=== PATIENT | male | born 1960 | race Caucasian/White ===

== ENCOUNTER → 2016-08-25 | Outpatient (CLI) | payer BC ==
[~2016-08-25] MED LIST: AMLO5TAB2 PO; HUMALOG SQ; LEVEMIR SQ; VITA250T5 PO
[2016-08-25 12:09] LABS: AUTOMATED NEUTROPHIL # 3.8 TH/MM3 (1.8-7.7); BASOPHIL % 0.5 % (0.0-2.0); EOSINOPHIL # 0.1 TH/MM3 (0-0.4); EOSINOPHIL % 1.6 % (0.0-4.0); HEMATOCRIT 45.7 % (39.0-51.0); HEMO FLAGS DIFF FINAL; LYMPH % 38.9 % (9.0-44.0); LYMPHOCYTE # 2.9 TH/MM3 (1.0-4.8); MONO % 7.2 % (0.0-8.0); NEUT % 51.8 % (16.0-70.0); PLATELET COUNT 240 TH/MM3 (150-450); RED BLOOD COUNT 5.19 MIL/MM3 (4.50-5.90); RED CELL DISTRIBUTION WIDTH 11.8 % (11.6-17.2); WHITE BLOOD COUNT 7.4 TH/MM3 (4.0-11.0)
--- NOTE | 2016-08-26 21:51 | EKG ---
Date Performed: 08/25/2016 Time Performed: 12:12:24 PTAGE: 55 years EKG: Sinus rhythm rSr'(V1) - probable normal variant Inferior T wave changes are nonspecific Since previous tracing, n o significant change noted Borderline ECG PREVIOUS TRACING : 10/11/1998 08.55 DOCTOR: Rachid Rodrigues Interpretating Date/Time 08/26/2016 21:49:44
== END ==
LOC: PHPRE 11:38
PROVIDERS: ATTEND Ophthalmology
DX: Z01.810 Encounter for preprocedural cardiovascular examination (principal); Z01.812 Encounter for preprocedural laboratory examination; R94.31 Abnormal electrocardiogram [ECG] [EKG]
CPT/HCPCS: 36415; 85025; 93005

== ENCOUNTER → 2016-09-01 | Day surgery (SDC) | payer BC ==
--- NOTE | 2016-08-26 11:13 | MH ---
cc: KARIN ZALDIVAR DATE OF ADMISSION 09/01/2016 ADMISSION DIAGNOSIS Cataract left eye. HISTORY OF PRESENT ILLNESS This 55-year-old white male is coming through [facility] for the purpose of a lens extraction of the left eye with intraocular lens implant under local anesthesia. He has noticed decreasing visual acuity interfering with his daily activities and elected to have the above procedure. His best corrected visual acuity is 20/30 in the right eye and 20/200 in the left eye. PAST MEDICAL HISTORY The patient has a history of: 1. Diabetes for 15 years 2. Hypertension PAST SURGICAL HISTORY 1. Bilateral arthroscopic knee surgery 2. He has had a focal laser treatment and brock-retinal photocoagulation in both eyes for diabetic retinopathy. 3. He also has had Avastin injections in both eyes. MEDICATIONS Daily medications include: 1. Humalog 2. Levemir 3. Amlodipine 4. B12 p.r.n. 5. Aleve p.r.n. ALLERGIES no known allergies. SOCIAL HISTORY He does not smoke or drink. FAMILY HISTORY Noncontributory, although his mother has had a history of Lasix surgery. REVIEW OF SYSTEMS HEAD: Patient has severe headaches which she feels may be from medications from blood pressure. Denies any dizziness or recent head injury. EARS: Patient denies hearing loss, ear pain, discharge or ringing in the ears. NOSE: Patient denies nasal discharge, obstruction or frequent colds. MOUTH AND THROAT: Patient denies soreness of the mouth or tongue, bleeding gums, trouble swallowing, changes in voice or sore throat. NECK: Patient denies neck pain or swelling, limitation of neck movement or neck injury. CARDIOPULMONARY SYSTEM: Patient denies shortness of breath, orthopnea, chronic cough, sputum production, hemoptysis, chest pain, wheezing, palpitations or light-headedness. GI SYSTEM: Patient denies poor appetite, nausea, vomiting, abdominal pain, ulcers, hemorrhoids or change in bowel habits. SYSTEM: The patient denies urinary frequency, dysuria, change in urine color. NERVOUS SYSTEM: Patient denies convulsions, vertigo, stroke, numbness or weakness. PHYSICAL EXAMINATION Blood pressure is 132/88, pulse 72, respirations 20. HEAD: Normocephalic, atraumatic. NOSE: Without rhinorrhea. THROAT: Clear. NECK: Supple. CHEST: Clear. HEART: Regular rhythm. ABDOMEN: Without tenderness. EXTREMITIES: Without edema. NEUROLOGIC: Within normal limits. PSYCH: Mental status within normal limits. EYE EXAMINATION The patient's best corrected visual acuity is 20/30 in the right eye and 20/200 in the left eye. Visual todd are full to confrontation testing. Extraocular muscle exam reveals full versions with orthophoria at distance and near. HEAD, EYES, EARS, NOSE, AND THROAT: Pupils are 3.5 mm equal, round, and reactive to light without afferent defect. The anterior segment exam reveals early cortical cataract change and minimal nuclear sclerotic cataract change in both eyes with a dense posterior subcapsular cataract in the left eye. Intraocular pressure is 22 in the right eye and 23 in the left eye by applanation tonometry. Dilated fundus exam revealed sharp disk with cup-to-disk ratio 0.5 in the right eye and 0.35 in the left. There are macular hemorrhages in the right macula and the left macula is clear. A Brock-retinal photocoagulation is present bilaterally. IMPRESSION 1. Cataract left eye much greater than right. 2. Proliferative diabetic retinopathy status post brock-retinal photocoagulation in both eyes. PLAN The plan is lens extraction of the left eye with intraocular lens implant under local anesthesia through [facility]. The patient has been cleared medically. He has been counseled as to the risks, benefits and alternatives and elected to proceed. I feel that cataract surgery will improve the quality of life and activities of daily living in this patient. MD STONE Ayala/ELAINE /10:52 AM /11:01 AM
[~2016-09-01] VITALS: Ht 175.3 cm; Wt 88.6 kg
[~2016-09-01] MED LIST changes: +ACETYLCHOLINE CHL OPHT SOLN 1:100 2 ML VIAL ONE; +CYCLOPENTOLATE HCL 1% OPHT SOLN 2 ML BTL ONE; +DICLOFENAC SOD 0.1% OPHT SOLN 2.5 ML BTL ONE; +EPINEPHrine HCL (1:1000) 1 MG/ML VIAL ONE; +GATIFLOXACIN 0.5% OPHT SOLN 2.5 ML BTL ONE; +HYALURONIDASE/LIDOCAINE/BUPIVACAINE 4.5 ML SYR ONE; +HYALURONIDASE/LIDOCAINE/BUPIVACAINE 6 ML SYR ONE; +ONDANSETRON HCL 4 MG/2 ML VIAL IV PUSH ONE; +PHENYLEPHRINE HCL 2.5% OPTH SOLN 2 ML BTL ONE; +PILOCARPINE HCL 2% OPHT SOLN 15 ML BTL ONE; +PROPARACAINE HCL 0.5% OPHT SOLN 15 ML BTL ONE; +PROPOFOL 200 MG/20 ML AMP ONE; +SODIUM CHLORID 0.9% 500 ML INJ 500 ML ONE; +TOBRAMYCIN/DEXAMETHASONE OPTH OINT 3.5 GM TUBE ONE; +TROPICAMIDE 1% OPHT SOLN 15 ML BTL ONE; +VISCOAT OPHT IRRIG SOLN 0.75 ML SYRINGE LEFT EYE ONE
[2016-09-01 08:05] VITALS: PULSE 80
[2016-09-01 09:35] VITALS: TEMP 97.6
[2016-09-01 10:00] VITALS: BP 137/86; PULSE 70; RESP 16; O2SAT 95
--- NOTE | 2016-09-01 12:36 | MP ---
cc: KARIN HANSON DATE OF SURGERY: September 01, 2016 PREOPERATIVE DIAGNOSIS: Cataract, left eye. POSTOPERATIVE DIAGNOSIS: Cataract, left eye. OPERATION: Extracapsular cataract extraction with posterior chamber intraocular lens implant by phacoemulsification, left eye. SURGEON: Karin Hanson M.D. ANESTHESIA: Local. COMPLICATIONS: None. INDICATIONS: See history and physical previously dictated. OPERATIVE PROCEDURE: The patient had adequate retrobulbar and eyelid blocks administered in the holding area and was brought to the operating room. The left eye was prepped and draped in the usual sterile ophthalmic manner. A lid speculum was inserted in the left eye. A 4-0 silk bridle suture was placed through the conjunctiva near the superior rectus muscle and it was tagged to the drape. A fornix-based conjunctival flap was prepared spanning approximately 5 mm in width. Hemostasis was obtained with wet-field cautery. A 3.5 mm groove was made 1 mm from the limbus and dissected up to the limbus in the form of a scleral pocket incision. A stab incision was then made at the 2 o'clock position. Viscoelastic was injected into the anterior chamber. The anterior chamber was entered with a 2.75 mm keratome through the scleral pocket incision. A 360 degree continuous curvilinear capsulorrhexis was then performed. Hydrodissection was utilized to divide the nucleus into inner and outer components and to separate the cortex from the capsule. Phacoemulsification was then utilized to remove the nucleus. The outer nuclear layer was removed with irrigation and aspiration and short bursts of ultrasound as necessary. The cortex was removed with the irrigation/aspiration handpiece. The posterior capsule was polished with the capsule polisher. Viscoelastic was injected into the capsular bag. The intraocular lens was inspected and found to be in good condition. The lens utilized was an Hung, model number SA60AT with a power of +21 diopters. The lens was inserted into the capsular bag. The viscoelastic in the anterior chamber was then removed with the irrigation-aspiration handpiece. Viscoelastic was also removed from beneath the intraocular lens. The anterior chamber was filled with Miochol-E through the stab incision and pressurized. The wound was checked for leaks at this pressure and normalized pressure and there were none. The 4-0 bridle suture was removed. The conjunctival flap was brought down over the wound and secured with cautery. Pilocarpine 2% eye drops were instilled topically. The lid speculum was removed. TobraDex ophthalmic ointment was applied. The eye was double patched and shielded. The patient tolerated the procedure well and left the Operating Room in satisfactory condition. MD STONE Ayala/KATIA /9:39 AM /12:35 PM
== END | disposition home or self-care (01) ==
LOC: PHSDC 07:08
PROVIDERS: ATTEND Ophthalmology
DX: E11.36 Type 2 diabetes mellitus with diabetic cataract (principal); I10 Essential (primary) hypertension; Z79.4 Long term (current) use of insulin
CPT/HCPCS: 66984; 82948; J0171; J2405; J7040; V2632

== ENCOUNTER 2016-11-21 17:57 | Inpatient (IN) | payer BC ==
[2016-11-21] VITALS (7 sets, daily range): BP systolic 150–170; BP diastolic 76–89; PULSE 65–78; RESP 14–18; TEMP 96.3–98.4; O2SAT 94–97
[~2016-11-21] VITALS: Ht 172.7 cm; Wt 91.4 kg
[~2016-11-21 17:57] MED LIST changes: -ACETYLCHOLINE CHL OPHT SOLN 1:100 2 ML VIAL ONE; -CYCLOPENTOLATE HCL 1% OPHT SOLN 2 ML BTL ONE; -DICLOFENAC SOD 0.1% OPHT SOLN 2.5 ML BTL ONE; -EPINEPHrine HCL (1:1000) 1 MG/ML VIAL ONE; -GATIFLOXACIN 0.5% OPHT SOLN 2.5 ML BTL ONE; -HYALURONIDASE/LIDOCAINE/BUPIVACAINE 4.5 ML SYR ONE; -HYALURONIDASE/LIDOCAINE/BUPIVACAINE 6 ML SYR ONE; -ONDANSETRON HCL 4 MG/2 ML VIAL IV PUSH ONE; -PHENYLEPHRINE HCL 2.5% OPTH SOLN 2 ML BTL ONE; -PILOCARPINE HCL 2% OPHT SOLN 15 ML BTL ONE; -PROPARACAINE HCL 0.5% OPHT SOLN 15 ML BTL ONE; -PROPOFOL 200 MG/20 ML AMP ONE; -SODIUM CHLORID 0.9% 500 ML INJ 500 ML ONE; -TOBRAMYCIN/DEXAMETHASONE OPTH OINT 3.5 GM TUBE ONE; -TROPICAMIDE 1% OPHT SOLN 15 ML BTL ONE; -VISCOAT OPHT IRRIG SOLN 0.75 ML SYRINGE LEFT EYE ONE
[2016-11-21] MEDS ORDERED: COZA50TA PO (18:34)
[2016-11-21] MEDS ORDERED: SODIUM CHLOR 0.9% 1000 ML INJ 1,000 ML IV ONE (18:45)
--- NOTE | 2016-11-21 18:57 | PD ---
HPI Chief Complaint: Dizziness Time Seen by Provider: 18:33 Travel History International Travel<30 days: No Contact w/Intl Traveler<30days: No Traveled to known affect area: No History of Present Illness HPI 55-year-old male complains of generalized malaise and weakness, lethargy, headache, slurred speech. Patient states that the symptoms started around 9:00 this morning and got progressively worse since then. Patient states that he has some mild aching headache diffuse over the head. Patient denies any visual change. Patient denies any neck pain. Patient denies any chest pain or shortness of breath. Patient denies abdominal pain. Patient denies any nausea vomiting diarrhea. Patient denies any back pain. Patient states that he had unsteady gait, generalized weakness. Patient denies any focal weakness and numbness of extremity. Patient has history hypertension, diabetes, hyperlipidemia. Patient is a nonsmoker. Patient denies history of TIA or CVA. Patient denies any alcohol or drug abuse. PFSH Past Medical History Cancer: No Cardiovascular Problems: Yes (HTN) Diabetes: Yes Patient Takes Glucophage: No Endocrine: Yes Genitourinary: No Hepatitis: No Hiatal Hernia: No Hypertension: Yes Immune Disorder: No Musculoskeletal: Yes (ARTHRITIS) Neurologic: No Psychiatric: No Reproductive: No Respiratory: No Thyroid Disease: No Tetanus Vaccination: Unknown Influenza Vaccination: No Past Surgical History Abdominal Surgery: No AICD: No Cardiac Surgery: No Ear Surgery: No Endocrine Surgery: No Eye Surgery: No Genitourinary Surgery: No Gynecologic Surgery: No Joint Replacement: No Oral Surgery: No Pacemaker: No Thoracic Surgery: No Other Surgery: Yes Social History Alcohol Use: No Tobacco Use: No Substance Use: No Allergies-Medications (Allergen,Severity, Reaction): Coded Allergies: No Known Allergies (Verified , 11/21/16) Reported Meds & Prescriptions Reported Meds & Active Scripts Active Reported Cozaar (Losartan Potassium) 50 Mg Tab 50 Mg PO DAILY Vitamin B-12 (Cyanocobalamin) 250 Mcg Tab 250 Mcg PO DAILY Amlodipine (Amlodipine Besylate) 5 Mg Tab 5 Mg PO DAILY Humalog Inj (Insulin Human Lispro) 1,000 Unit/10 Ml Vial 24 Units SQ ACHS Max dose at bedtime:( )units; sugars < 70,(0)units; sugars 150-199,(5)units; sugars 200-249,(10)units; sugars 250-299,(15)units; sugars 300-349,(20)units; sugars more than 349,(25)units. Levemir Inj (Insulin Detemir) 1,000 unit/ 10 ML Vial 65 Units SQ HS Do not mix with any other Insulin. Review of Systems General / Constitutional: No: Fever Eyes: No: Visual changes HENT: Positive: Headaches, Lightheadedness Cardiovascular: No: Chest Pain or Discomfort Respiratory: No: Shortness of Breath Gastrointestinal: No: Abdominal Pain Genitourinary: No: Dysuria Musculoskeletal: No: Pain Skin: No Rash Neurologic: No: Weakness Psychiatric: No: Depression Endocrine: No: Polydipsia Hematologic/Lymphatic: No: Easy Bruising Physical Exam Narrative GENERAL: Well-nourished, well-developed patient. SKIN: Focused skin assessment warm/dry. HEAD: Normocephalic. EYES: No scleral icterus. No injection or drainage. Pupils 2 mm equal reactive. NECK: Supple, trachea midline. No JVD or lymphadenopathy. CARDIOVASCULAR: Regular rate and rhythm without murmurs, gallops, or rubs. RESPIRATORY: Breath sounds equal bilaterally. No accessory muscle use. GASTROINTESTINAL: Abdomen soft, non-tender, nondistended. MUSCULOSKELETAL: No cyanosis, or edema. BACK: Nontender without obvious deformity. No CVA tenderness. Neurologic exam: Patient is awake and alert oriented 3. No obvious focal neurological deficit. Data Data Last Documented VS Vital Signs Date Time Temp Pulse Resp B/P (MAP) Pulse Ox O2 Delivery O2 Flow Rate FiO2 11/21/16 18:02 98.4 78 18 170/89 (116) 97 Orders Orders Electrocardiogram (11/21/16 18:45) Complete Blood Count With Diff (11/21/16 18:45) Comprehensive Metabolic Panel (11/21/16 18:45) Creatine Kinase (Cpk) (11/21/16 18:45) Troponin I (11/21/16 18:45) Prothrombin Time / Inr (Pt) (11/21/16 18:45) Act Partial Throm Time (Ptt) (11/21/16 18:45) Urinalysis - C+S If Indicated (11/21/16 18:45) Thyroid Stimulating Hormone (11/21/16 18:45) Chest, Single Ap (11/21/16 18:45) Ct Brain W/O Iv Contrast(Rout) (11/21/16 18:45) Iv Access Insert/Monitor (11/21/16 18:45) Ecg Monitoring (11/21/16 18:45) Oxygen Administration (11/21/16 18:45) Oximetry (11/21/16 18:45) Ns (Bolus) Inj (11/21/16 18:45) MDM Medical Decision Making Medical Screen Exam Complete: Yes Emergency Medical Condition: Yes Differential Diagnosis Differential diagnosis including TIA, CVA, electrolyte imbalance, dehydration, vertigo, heat exhaustion. Narrative Course 55-year-old male with mild slurring speech, headache, dizziness, generalized malaise and weakness. Normal saline solution 1 L IV bolus. O2 2 L nasal cannula. Head of bed flat. Casey Murphy MD Nov 21, 2016 18:57
[2016-11-21 19:28] LABS: AUTOMATED NEUTROPHIL # 3.3 TH/MM3 (1.8-7.7); BASOPHIL # 0.1 TH/MM3 (0-0.2); BASOPHIL % 1.7 % (0.0-2.0); EOSINOPHIL # 0.1 TH/MM3 (0-0.4); EOSINOPHIL % 1.9 % (0.0-4.0); HEMATOCRIT 43.3 % (39.0-51.0); HEMO FLAGS DIFF FINAL; LYMPH % 43.4 % (9.0-44.0); LYMPHOCYTE # 3.1 TH/MM3 (1.0-4.8); MEAN CORPUSCULAR HEMOGLOBIN 29.5 PG (27.0-34.0); MEAN CORPUSCULAR HGB CONC 33.6 % (32.0-36.0); MONO % 6.7 % (0.0-8.0); NEUT % 46.3 % (16.0-70.0); PLATELET COUNT 240 TH/MM3 (150-450); RED BLOOD COUNT 4.92 MIL/MM3 (4.50-5.90); RED CELL DISTRIBUTION WIDTH 12.5 % (11.6-17.2); WHITE BLOOD COUNT 7.1 TH/MM3 (4.0-11.0)
[2016-11-21 19:36] LABS: CHLORIDE 105 MEQ/L (98-107); POTASSIUM 3.8 MEQ/L (3.5-5.1); SODIUM (NA) 138 MEQ/L (136-145)
[2016-11-21 19:40] LABS: ANION GAP 7 MEQ/L (5-15); BICARBONATE 26.2 MEQ/L (21.0-32.0); BLOOD UREA NITROGEN 16 MG/DL (7-18)
[2016-11-21 19:43] LABS: ALT (GPT) 49 U/L (12-78); AST (GOT) 36 U/L (15-37); GLOMERULAR FILTRATION RATE 78 ML/MIN (>89)
[2016-11-21 19:45] LABS: TOTAL BILIRUBIN ADULT 0.9 MG/DL (0.2-1.0)
[2016-11-21 19:46] LABS: ALKALINE PHOSPHATASE 52 U/L (45-117); CREATINE KINASE 125 U/L (39-308)
[2016-11-21 19:50] LABS: APTT (PATIENT) 25.7 SEC (24.3-30.1); PROTHROMBIN TIME - PATIENT 10.7 SEC (9.8-11.6)
[2016-11-21 20:03] LABS: GLUCOSE,URINE 250 mg/dL (NEG); KETONE, URINE NEG (NEG); NITRITE,URINE NEG (NEG); PH, URINE 5.5 (5.0-8.5)
[2016-11-21 20:07] LABS: BLOOD, URINE TRACE (NEG)
[2016-11-21 20:08] LABS: COMMENT (UR) CULT NOT INDICATED; CULTURE IF INDICATED CULT NOT INDICATED; SQUAMOUS EPITHELIAL CELL URINE 0-5 /hpf (0-5); URINE COLOR YELLOW (YELLW/STRAW); WBC, URINE 0-2 /hpf (0-5)
--- NOTE | 2016-11-21 20:30 | RADRPT ---
EXAM DATE/TIME: 11/21/2016 19:03 [facility] COMPARISON: No previous studies available for comparison. INDICATIONS : Slurred speech and loss of balance since this morning. Evaluate for cerebrovascular accident. RADIATION DOSE: 63.37 CTDIvol (mGy) MEDICAL HISTORY : Diabetes mellitus type 2. Hypertension. SURGICAL HISTORY : None. ENCOUNTER: Initial ACUITY: 1 day PAIN SCALE: 0/10 LOCATION: cranial TECHNIQUE: Multiple contiguous axial images were obtained of the head. Using automated exposure control and adj ustment of the mA and/or kV according to patient size, radiation dose was kept as low as reasonably a chievable to obtain optimal diagnostic quality images. DICOM format image data is available electro nically for review and comparison. FINDINGS: CEREBRUM: The ventricles are normal for age. No evidence of midline shift, mass lesion, hemorrhage or acute in farction. No extra-axial fluid collections are seen. POSTERIOR FOSSA: The cerebellum and brainstem are intact. The 4th ventricle is midline. The cerebellopontine angle i s unremarkable. EXTRACRANIAL: The visualized portion of the orbits is intact. SKULL: The calvaria is intact. No evidence of skull fracture. CONCLUSION: No acute disease. Ramy Correia MD on November 21, 2016 at 20:27 Board Certified Radiologist. This report was verified electronically.
--- NOTE | 2016-11-21 20:31 | RADRPT ---
EXAM DATE/TIME: 11/21/2016 19:24 [facility] COMPARISON: No previous studies available for comparison. INDICATIONS : Shortness of breath and dizziness. MEDICAL HISTORY : None. SURGICAL HISTORY : None. ENCOUNTER: Initial ACUITY: 1 day PAIN SCORE: 3/10 LOCATION: Bilateral chest FINDINGS: A single view of the chest demonstrates the lungs to be symmetrically aerated without evidence of mas s, infiltrate or effusion. The heart size is borderline enlarged for an AP portable chest x-ray. No effusion is seen. CONCLUSION: Borderline cardiomegaly. Ramy Correia MD on November 21, 2016 at 20:28 Board Certified Radiologist. This report was verified electronically.
--- NOTE | 2016-11-21 20:58 | PD ---
Physical Exam Time Seen by Provider: 20:[address] Murphy with this patient with me to check the laboratory and imaging and make a disposition, likely admission under 23 hour observation. Data Data Last Documented VS Vital Signs Date Time Temp Pulse Resp B/P (MAP) Pulse Ox O2 Delivery O2 Flow Rate FiO2 11/21/16 19:15 95 Room Air 11/21/16 19:15 14 11/21/16 19:00 73 11/21/16 18:02 98.4 170/89 (116) Orders Orders Electrocardiogram (11/21/16 18:45) Complete Blood Count With Diff (11/21/16 18:45) Comprehensive Metabolic Panel (11/21/16 18:45) Creatine Kinase (Cpk) (11/21/16 18:45) Troponin I (11/21/16 18:45) Prothrombin Time / Inr (Pt) (11/21/16 18:45) Act Partial Throm Time (Ptt) (11/21/16 18:45) Urinalysis - C+S If Indicated (11/21/16 18:45) Thyroid Stimulating Hormone (11/21/16 18:45) Chest, Single Ap (11/21/16 18:45) Ct Brain W/O Iv Contrast(Rout) (11/21/16 18:45) Iv Access Insert/Monitor (11/21/16 18:45) Ecg Monitoring (11/21/16 18:45) Oxygen Administration (11/21/16 18:45) Oximetry (11/21/16 18:45) Sodium Chlor 0.9% 1000 Ml Inj (Ns 1000 M (11/21/16 18:45) Labs Laboratory Tests Test 11/21/16 19:00 11/21/16 19:55 White Blood Count 7.1 TH/MM3 Red Blood Count 4.92 MIL/MM3 Hemoglobin 14.5 GM/DL Hematocrit 43.3 % Mean Corpuscular Volume 88.0 FL Mean Corpuscular Hemoglobin 29.5 PG Mean Corpuscular Hemoglobin Concent 33.6 % Red Cell Distribution Width 12.5 % Platelet Count 240 TH/MM3 Mean Platelet Volume 7.5 FL Neutrophils (%) (Auto) 46.3 % Lymphocytes (%) (Auto) 43.4 % Monocytes (%) (Auto) 6.7 % Eosinophils (%) (Auto) 1.9 % Basophils (%) (Auto) 1.7 % Neutrophils # (Auto) 3.3 TH/MM3 Lymphocytes # (Auto) 3.1 TH/MM3 Monocytes # (Auto) 0.5 TH/MM3 Eosinophils # (Auto) 0.1 TH/MM3 Basophils # (Auto) 0.1 TH/MM3 CBC Comment DIFF FINAL Differential Comment Prothrombin Time 10.7 SEC Prothromb Time International Ratio 1.0 RATIO Activated Partial Thromboplast Time 25.7 SEC Blood Urea Nitrogen 16 MG/DL Creatinine 1.00 MG/DL Random Glucose 89 MG/DL Total Protein 7.9 GM/DL Albumin 4.0 GM/DL Calcium Level 8.0 MG/DL Alkaline Phosphatase 52 U/L Aspartate Amino Transf (AST/SGOT) 36 U/L Alanine Aminotransferase (ALT/SGPT) 49 U/L Total Bilirubin 0.9 MG/DL Sodium Level 138 MEQ/L Potassium Level 3.8 MEQ/L Chloride Level 105 MEQ/L Carbon Dioxide Level 26.2 MEQ/L Anion Gap 7 MEQ/L Estimat Glomerular Filtration Rate 78 ML/MIN Total Creatine Kinase 125 U/L Troponin I LESS THAN 0.02 NG/ML Thyroid Stimulating Hormone 3rd Gen 2.450 uIU/ML Urine Color YELLOW Urine Turbidity CLEAR Urine pH 5.5 Urine Specific [place] 1.028 Urine Protein 100 mg/dL Urine Glucose (UA) 250 mg/dL Urine Ketones NEG mg/dL Urine Occult Blood TRACE Urine Nitrite NEG Urine Bilirubin NEG Urine Leukocyte Esterase NEG Urine RBC 3-5 /hpf Urine WBC 0-2 /hpf Urine Squamous Epithelial Cells 0-5 /hpf Urine Bacteria NONE /hpf Microscopic Urinalysis Comment CULT NOT INDICATED MDM Medical Record Reviewed: Yes Supervised Visit with FARIHA: Yes Interpretation(s) The EKG shows sinus rhythm with a rate of [address] elevation or depression. The CBC is normal. The CT brain shows no acute disease. The coagulation profile is normal. The complete metabolic profile shows a GFR of 78 , calcium 8.0 but is otherwise unremarkable. The cardiac enzymes are normal. The TSH is normal. The chest x-ray shows borderline cardiomegaly but is otherwise unremarkable. THe urinalysis is normal. Differential Diagnosis TIA, CVA, brain tumor, intracranial bleed, electrolyte disorder, hypo-/ hyperglycemia, atrial fibrillation Alfonso Patrick MD Nov 21, 2016 20:58
[2016-11-21] MEDS ORDERED: ASPIRIN 325 MG TAB PO ONE (21:00)
[2016-11-21] MEDS ORDERED: SODIUM CHLORIDE 0.9% FLUSH 5 ML FLUSH IV FLUSH PRN (21:15)
[2016-11-21] MEDS ORDERED: ENALAPRILAT 1.25 MG/ML VIAL IV PRN (21:15)
[2016-11-21] MEDS ORDERED: DEXTROSE 50% IN WATER 50 ML VIAL(D50) IV PUSH PRN (21:15)
[2016-11-21] MEDS ORDERED: GLUCAGON 1 MG/ML VIAL OTHER PRN (21:15)
[2016-11-21] MEDS: SODIUM CHLOR 0.9% 1000 ML INJ 1,000 ML IV SCH (21:23)
[2016-11-22] VITALS (10 sets, daily range): BP systolic 148–163; BP diastolic 84–97; PULSE 64–74; RESP 16–20; TEMP 97–98.2; O2SAT 94–98
[2016-11-22] MEDS: INSULIN ASPART SUPPLEMENTAL SCALE SQ SCH ×4 (05:43→20:38)
[2016-11-22] MEDS ORDERED: ONDANSETRON HCL 4 MG/2 ML VIAL IV PUSH PRN (09:00)
[2016-11-22] MEDS ORDERED: ASPIRIN 300 MG SUPP RECTAL SCH (09:00)
--- NOTE | 2016-11-22 09:19 | HHI.HP ---
[facility] Isauro Harris MD Admission Diagnosis CVA Diagnoses: (1) Neurological complaint Diagnosis: Principal (2) Slurring of speech Diagnosis: Principal (3) Discoordination Diagnosis: Principal (4) Diabetes Diagnosis: Secondary (5) Hypertension Diagnosis: Secondary (6) Hyperlipidemia Diagnosis: Secondary Chief Complaint: Slurred speech disequilibrium Travel History International Travel<30 Days: No Contact w/Intl Traveler <30 Da: No Traveled to Known Affected Are: No History of Present Illness Written by Noe Patrick, acting as scribe for Dr. Flowers on 11/22/16 at 09: 18. 55 year-old male with known history of hypertension, hyperlipidemia, diabetes who presented to hospital because of neurologic complaints to include slurred speech, disequilibrium, change in handwriting, and difficulty using a computer keyboard. Patient states that he is in normal state of health yesterday when he got up he went to work and approximate 8:30/9 AM yesterday morning and his boss noticed that he was having slow and slurred speech. The patient also indicates that he was losing his balance whenever he was going from a sitting to standing position. When he is using the computer he noticed that he was misspelling words and when he was writing it was worse than usual. Because of those reasons he came to emergency department for evaluation. Patient presented to the hospital at 1757. Patient was out of window for TPA administration. Patient was given aspirin emergency department has CT scan done which was unremarkable for any acute abnormality. It was then recommended that the patient be admitted for CVA workup. Patient denies any visual disturbances, weakness unilaterally or bilaterally, paresthesia. Review of Systems Neurologic: COMPLAINS OF: Speech Problems, Poor Balance Except as stated in HPI: all other systems reviewed are Neg Past Family Social History Past Medical History Hypertension Hyperlipidemia, untreated Diabetes TYPE 2, insulin-dependent for 3 years Frequent ear infections Past Surgical History Cataract surgery in August 2016 Bilateral knee arthroscopic surgery Reported Medications Reported Meds & Active Scripts Active Reported Cozaar (Losartan Potassium) 50 Mg Tab 50 Mg PO DAILY Vitamin B-12 (Cyanocobalamin) 250 Mcg Tab 250 Mcg PO DAILY Amlodipine (Amlodipine Besylate) 5 Mg Tab 5 Mg PO DAILY Humalog Inj (Insulin Human Lispro) 1,000 Unit/10 Ml Vial 24 Units SQ ACHS Max dose at bedtime:( )units; sugars < 70,(0)units; sugars 150-199,(5)units; sugars 200-249,(10)units; sugars 250-299,(15)units; sugars 300-349,(20)units; sugars more than 349,(25)units. Levemir Inj (Insulin Detemir) 1,000 unit/ 10 ML Vial 65 Units SQ HS Do not mix with any other Insulin. Allergies: Coded Allergies: No Known Allergies (Verified , 11/21/16) Family History Reviewed and significant for entire family with diabetes. Father at age 76 from heart failure, mother is alive at age 72 Social History Patient denies any tobacco, alcohol or illicit drug use Physical Exam Vital Signs Vital Signs Date Time Temp Pulse Resp B/P (MAP) Pulse Ox O2 Delivery O2 Flow Rate FiO2 11/22/16 09:17 97.0 11/22/16 09:01 71 11/22/16 08:46 97.0 64 18 149/88 (108) 98 11/22/16 08:26 97 21 11/22/16 04:00 97.0 68 20 149/84 (105) 96 11/21/16 23:00 65 11/21/16 22:30 96.3 75 18 150/87 (108) 96 11/21/16 22:25 96 21 11/21/16 22:05 11/21/16 21:30 75 14 158/76 (103) 94 Room Air 11/21/16 19:15 95 Room Air 11/21/16 19:15 14 95 Room Air 11/21/16 19:00 73 14 164/82 (109) 95 Room Air 11/21/16 19:00 73 14 95 Room Air 11/21/16 18:02 98.4 78 18 170/89 (116) 97 Physical Exam GENERAL: Well-developed, well-nourished, in no acute distress. alert and orientated HEENT: Head is normocephalic without any lesions or masses noted. Facial features are symmetric. Eyes: Pupils equal round reactive to light. Extraocular muscles are intact. Conjunctivae were clear. Oropharyngeal: Pharynx without any erythema edema. Tongue is midline without deviation. Buccal mucosa is moist without any masses or lesions NECK: Supple without any masses. Trachea midline no deviation. No JVD, no bruits are appreciated CARDIAC: Regular rhythm, regular rate. S1/S2 are heard. No murmurs gallops or rubs. LUNGS: Clear to auscultation bilaterally. No wheeze, rhonchi or rales. No use of accessory muscles on inspiration or expiration. ABDOMEN: Soft, nontender. Nondistended. Bowel sounds heard in all 4 quadrants. No organomegaly or masses. Negative rebound, negative guarding EXTREMITIES: No edema, pulses are equal bilaterally. No cyanosis or clubbing NEUROLOGY: Mood and affect appear appropriate. Cranial nerves II through XII grossly intact. Muscle strength 5/5 in upper and lower extremities bilaterally. Deep tendon reflexes are 2+ in upper and lower extremities bilaterally. Laboratory Laboratory Tests Test 11/21/16 19:00 11/21/16 19:55 11/22/16 06:12 White Blood Count 7.1 Red Blood Count 4.92 Hemoglobin 14.5 Hematocrit 43.3 Mean Corpuscular Volume 88.0 Mean Corpuscular Hemoglobin 29.5 Mean Corpuscular Hemoglobin Concent 33.6 Red Cell Distribution Width 12.5 Platelet Count 240 Mean Platelet Volume 7.5 Neutrophils (%) (Auto) 46.3 Lymphocytes (%) (Auto) 43.4 Monocytes (%) (Auto) 6.7 Eosinophils (%) (Auto) 1.9 Basophils (%) (Auto) 1.7 Neutrophils # (Auto) 3.3 Lymphocytes # (Auto) 3.1 Monocytes # (Auto) 0.5 Eosinophils # (Auto) 0.1 Basophils # (Auto) 0.1 CBC Comment DIFF FINAL Differential Comment Prothrombin Time 10.7 Prothromb Time International Ratio 1.0 Activated Partial Thromboplast Time 25.7 Blood Urea Nitrogen 16 Creatinine 1.00 Random Glucose 89 Total Protein 7.9 Albumin 4.0 Calcium Level 8.0 Alkaline Phosphatase 52 Aspartate Amino Transf (AST/SGOT) 36 Alanine Aminotransferase (ALT/SGPT) 49 Total Bilirubin 0.9 Sodium Level 138 Potassium Level 3.8 Chloride Level 105 Carbon Dioxide Level 26.2 Anion Gap 7 Estimat Glomerular Filtration Rate 78 Total Creatine Kinase 125 Troponin I LESS THAN 0.02 Thyroid Stimulating Hormone 3rd Gen 2.450 Urine Color YELLOW Urine Turbidity CLEAR Urine pH 5.5 Urine Specific [place] 1.028 Urine Protein 100 Urine Glucose (UA) 250 Urine Ketones NEG Urine Occult Blood TRACE Urine Nitrite NEG Urine Bilirubin NEG Urine Leukocyte Esterase NEG Urine RBC 3-5 Urine WBC 0-2 Urine Squamous Epithelial Cells 0-5 Urine Bacteria NONE Microscopic Urinalysis Comment CULT NOT INDICATED Result Diagram: 11/21/16189911/21/161899 Imaging Last Impressions Head CT 11/21/161844 Signed Impressions: Service Date/Time: Monday, November 21, 2016 19:03 - CONCLUSION: No acute disease. Ramy Correia MD Chest X-Ray 11/21/161844 Signed Impressions: Service Date/Time: Monday, November 21, 2016 19:24 - CONCLUSION: Borderline cardiomegaly. MD Lorenzo Estrada VTE Risk Assessment Lorenzo VTE Risk Assessment: Mod/High Risk (score >= 2) Caprini Risk Assessment Model Point Value = 1 Point Value = 2 Point Value = 3 Point Value = 5 Age 41-60 Minor surgery BMI > 25 kg/m2 Swollen legs Varicose veins or History of unexplained or recurrent spontaneous Oral contraceptives or hormone replacement Sepsis (< 1 month) Serious lung disease, including pneumonia (< 1 month) Abnormal pulmonary function Acute myocardial infarction Congestive heart failure (< 1 month) History of inflammatory bowel disease Medical patient at bed rest Age 61-74 Arthroscopic surgery Major open surgery (> 45 min) Laparoscopic surgery (> 45 min) Malignancy Confined to bed (> 72 hours) Immobilizing plaster cast Central venous access Age >= 75 History of VTE Family history of VTE Factor V Leiden Prothrombin [id number] Lupus anticoagulant Anticardiolipin antibodies Elevated serum homocysteine Heparin-induced thrombocytopenia Other congenital or acquired thrombophilia Stroke (< 1 month) Elective arthroplasty Hip, pelvis, or leg fracture Acute spinal cord injury (< 1 month) Prophylaxis Regimen Total Risk Factor Score Risk Level Prophylaxis Regimen 0-1 Low Early ambulation 2 Moderate Order ONE of the following: *Sequential Compression Device (SCD) *Heparin 5000 units SQ BID 3-4 Higher Order ONE of the following medications: *Heparin 5000 units SQ TID *Enoxaparin/Lovenox 40 mg SQ daily (WT < 150 kg, CrCl > 30 mL/min) *Enoxaparin/Lovenox 30 mg SQ daily (WT < 150 kg, CrCl > 10-29 mL/min) *Enoxaparin/Lovenox 30 mg SQ BID (WT < 150 kg, CrCl > 30 mL/min) AND/OR *Sequential Compression Device (SCD) 5 or more Highest Order ONE of the following medications: *Heparin 5000 units SQ TID (Preferred with Epidurals) *Enoxaparin/Lovenox 40 mg SQ daily (WT < 150 kg, CrCl > 30 mL/min) *Enoxaparin/Lovenox 30 mg SQ daily (WT < 150 kg, CrCl > 10-29 mL/min) *Enoxaparin/Lovenox 30 mg SQ BID (WT < 150 kg, CrCl > 30 mL/min) AND *Sequential Compression Device (SCD) Assessment and Plan Problem List: (1) Neurological complaint ICD Code: R29.90 - Unspecified symptoms and signs involving the nervous system Plan: Patient presented for evaluation of flow/slurred speech, disequilibrium, patient undergoing workup for CVA at this time. -Initial CT scan was unremarkable for any acute abnormality -Patient remain on bedrest/head of bed flat, permissive hypertension -Obtain MRI/MRA of the brain, echocardiogram, carotid ultrasound -PT/OT/ST evaluations -Patient continued on aspirin -Neurology consultation (2) Hypertension ICD Code: I10 - Essential (primary) hypertension Plan: In light of the patient's presentation for CVA, will keep permissive hypertension at this time. Resume home medications once cleared by neurology (3) Hyperlipidemia ICD Code: E78.5 - Hyperlipidemia, unspecified Plan: Will obtain lipid panel. Patient has been started on pravastatin (4) Diabetes ICD Code: E11.9 - Type 2 diabetes mellitus without complications Plan: Accu-Cheks with sliding scale insulin Assessment and Plan DVT prevention: Sequential compression devices Physician Certification 2 Midnight Certification Type: Admission for Inpatient Services Order for Inpatient Services The services are ordered in accordance with Medicare regulations or non- Medicare payer requirements, as applicable. In the case of services not specified as inpatient-only, they are appropriately provided as inpatient services in accordance with the 2-midnight benchmark. Estimated LOS (days): 2 days is the estimated time the patient will need to remain in the hospital, assuming treatment plan goals are met and no additional complications. Post-Hospital Plan: Not yet determined Medical Decision Making Impression and Plan This note was transcribed by scribneela [email or web address]. I, Dr. Aimee Flowers personally performed the history, physical exam, and medical decision making; and confirmed the accuracy of the information in the transcribed note. Also rule out radiculopathy and the C-spine with chronic symptoms of numbness and tingling in both arms which is positional. Patient still with some slowness and plan of care discussed with family and patient at bedside Authenticated by Dr. Aimee Flowers on 11/22/16 at 09:20. Problem Qualifiers (1) Diabetes: Qualified Codes: E11.8 - Type 2 diabetes mellitus with unspecified complications; Z79.4 - alf (current) use of insulin (2) Hypertension: Qualified Codes: I10 - Essential (primary) hypertension (3) Hyperlipidemia: Qualified Codes: E78.5 - Hyperlipidemia, unspecified Noe Patrick Nov 22, 2016 09:19 Aimee Flowers MD Nov 22, 2016 09:20
--- NOTE | 2016-11-22 09:29 | EKG ---
Date Performed: 11/21/2016 Time Performed: 19:00:10 PTAGE: 55 years EKG: Sinus rhythm INCOMPLETE RIGHT BUNDLE BRANCH BLOCK MODERATE VOLTAGE CRITERIA FOR LVH, CONSIDER NORMAL VARIANT [facility] ECG PREVIOUS TRACING : 08/25/2016 12.12 DOCTOR: Guillermo Sal Interpretating Date/Time 11/22/2016 09:28:43
[2016-11-22] MEDS: SODIUM CHLOR 0.9% 1000 ML INJ 1,000 ML IV SCH ×2 (10:51→20:27)
--- NOTE | 2016-11-22 12:54 | RADRPT ---
EXAM DATE/TIME: 11/22/2016 11:46 [facility] COMPARISON: No previous studies available for comparison. INDICATIONS : Transient ischemic attack. MEDICAL HISTORY : Hypertension. Arthritis. Left cataract. Diabetes. SURGICAL HISTORY : Bilateral knee surgery. ENCOUNTER: Initial ACUITY: 1 day PAIN SCORE: 0/10 LOCATION: Bilateral neck PEAK SYSTOLIC VELOCITIES (cm/sec): ICA/CCA RATIO: Right: 1.0 Left: 0.7 ICA: Right: 79 Left: 72 CCA: Right: 81 Left: 103 ECA: Right: 146 Left: 123 VERTEBRAL: Right: 41 antegrade Left: 51 antegrade Elevated flow velocities and ICA/CCA ratios have been found to correlate with increased degrees of vessel stenosis, calculated as percentage of diameter relative to a normal segment of distal ICA/CCA FINDINGS: RIGHT CAROTID: There is no evidence for a hemodynamically significant carotid stenosis. Minimal int imal hyperplasia is present with scattered calcific plaque. LEFT CAROTID: There is no evidence for a hemodynamically significant carotid stenosis. Minimal inti mal hyperplasia is present with scattered calcific plaque. VERTEBRAL ARTERIES: Flow is antegrade in both vertebral arteries. MISCELLANEOUS: There are no ancillary masses or adenopathy. CONCLUSION: Negative examination for a hemodynamically significant carotid stenosis. Troy Zavaleta MD FACR Board Certified Radiologist. This report was verified electronically.
[2016-11-22 13:25] LABS: HDL CHOLESTEROL 27.2 MG/DL (40.0-60.0); LDL CHOLESTEROL 126 MG/DL (0-99)
[2016-11-22] MEDS: ASPIRIN EC 325 MG TABEC PO SCH (14:43)
--- NOTE | 2016-11-22 18:35 | ECHRPT ---
Indication: CVA/TIA CONCLUSIONS Normal left ventricular size. Wall thickness is normal. The left ventricular systolic function is mildly reduced with an estimated ejection fraction in the range of 45- 50%. Doppler parameters are consistent with impaired left ventricular relaxtion (grade 1 diastolic dysfun ction). A patent foramen ovale is present with a [id number] shunt demonstrated by color flow Doppler interrogation. Mild aortic dilatation at the level of the sinuses of Valsalva. Trace mitral valve regurgitation. Aortic valve sclerosis is present. No aortic valve regurgitation. No aortic valve stenosis. There is trace tricuspid valve regurgitation. Normal estimated pulmonary pressures. The pulmonary valve is not well visualized. The inferior vena cava was not well visualized. BP: 149 / 84 HR: Rhythm: Sinus MEASUREMENTS (Male / Female) Normal Values Technical Quality:Fair 2D ECHO LV Diastolic Diameter PLAX 5.1 cm 4.2 - 5.9 / 3.9 - 5.3 cm LV Systolic Diameter PLAX 4.1 cm IVS Diastolic Thickness 1.0 cm 0.6 - 1.0 / 0.6 - 0.9 cm LVPW Diastolic Thickness 1.0 cm 0.6 - 1.0 / 0.6 - 0.9 cm LV Relative Wall Thickness 0.4 LVOT Diameter 2.3 cm Aortic Root Diameter 3.7 cm LA Systolic Diameter LX 3.4 cm 3.0 - 4.0 / 2.7 - 3.8 cm M-MODE AV Cusp Separation MM 2.2 cm DOPPLER AV Peak Velocity 130.0 cm/s AV Peak Gradient 6.8 mmHg AV Mean Gradient 4.0 mmHg AV Velocity Time Integral 27.2 cm LVOT Peak Velocity 72.2 cm/s LVOT Peak Gradient 2.1 mmHg LVOT Velocity Time Integral 14.5 cm AV Area Cont Eq vti 2.2 cm AV Area Cont Eq pk 2.3 cm Mitral E Point Velocity 67.1 cm/s Mitral A Point Velocity 77.0 cm/s Mitral E to A Ratio 0.9 TR Peak Velocity 201.0 cm/s TR Peak Gradient 16.2 mmHg PV Peak Velocity 66.9 cm/s PV Peak Gradient 1.8 mmHg FINDINGS LEFT VENTRICLE Normal left ventricular size. Wall thickness is normal. The left ventricular systolic function is mildly reduced with an estimated ejection fraction in the range of 45- 50%. Doppler parameters are consistent with impaired left ventricular relaxtion (grade 1 diastolic dysfun ction). RIGHT VENTRICLE Normal right ventricular size and systolic function. LEFT ATRIUM The left atrial size is normal. RIGHT ATRIUM The right atrial size is normal. ATRIAL SEPTUM A patent foramen ovale is present with a [id number] shunt demonstrated by color flow Doppler interrogation. AORTA Mild aortic dilatation at the level of the sinuses of Valsalva. MITRAL VALVE Structurally normal mitral valve. Trace mitral valve regurgitation. AORTIC VALVE Aortic valve sclerosis is present. No aortic valve regurgitation. No aortic valve stenosis. TRICUSPID VALVE Structurally normal tricuspid valve. There is trace tricuspid valve regurgitation. Normal estimated pulmonary pressures. PULMONARY VALVE The pulmonary valve is not well visualized. VESSELS The inferior vena cava was not well visualized. PERICARDIUM No pericardial effusion. Vishal Caldera MD, FACC, FSCAI (Electronically Signed) Final Date:22 November 2016 18:34
[2016-11-22] MEDS: SODIUM CHLORIDE 0.9% FLUSH 5 ML FLUSH IV FLUSH SCH (20:27)
[2016-11-22] MEDS ORDERED: PRAVASTATIN SOD 40 MG TAB PO SCH (21:00)
[2016-11-23] VITALS (8 sets, daily range): BP systolic 141–164; BP diastolic 82–92; PULSE 65–76; RESP 16–18; TEMP 97–99.2; O2SAT 95–99
[2016-11-23] MEDS: INSULIN ASPART SUPPLEMENTAL SCALE SQ SCH ×4 (06:20→20:59)
[2016-11-23] MEDS: SODIUM CHLORIDE 0.9% FLUSH 5 ML FLUSH IV FLUSH SCH ×2 (09:00→20:49)
[2016-11-23] MEDS: ASPIRIN EC 325 MG TABEC PO SCH (09:23)
[2016-11-23] MEDS ORDERED: LORazepam 2 MG/ML VIAL IM ONE (10:00)
--- NOTE | 2016-11-23 10:13 | MB ---
cc: KARTHIK PHILLIPS M.D., DAVID W. M.D. DATE OF CONSULTATION: 11/23/2016 REASON FOR CONSULTATION: Possible stroke. HISTORY OF PRESENT ILLNESS: The patient is a 55 year-old male with a history of hypertension, hyperlipidemia, diabetes, came in because of some slurring of speech, dysequalibrium, change in his typing capacity and spelling capacity. He is back to baseline now. Unfortunately he was out of the window for TPA at that time. He did not want to do the MRI yesterday because of claustrophobia but after talking to him with some medication he is willing to retry it. He denies any dizziness, chest pain, shortness of breath, weakness, numbness or tingling. PAST MEDICAL HISTORY: As stated. PAST SURGICAL HISTORY: Cataracts in August of this year. Bilateral knee arthroscopic surgery. HOME MEDICATIONS: 1. Cozaar. 2. B12. 3. Amlodipine. 4. Insulin. 5. Levmir. 6. Humalog. ALLERGIES: None reported. FAMILY HISTORY: Diabetes in multiple family members. Heart failure in the father. SOCIAL HISTORY: He does not smoke, drink or use drugs. . PHYSICAL EXAMINATION: VITAL SIGNS: Temperature 97, pulse 71, respiratory rate 18, blood pressure 141/90, sating at 95% on room air. NECK: Supple. There are no bruits. HEART: Regular. Awake, alert, oriented, fluent. HEENT: Pupils are active, visual todd full, face symmetrical, tongue midline. NEUROLOGIC: Motor escobar, he does not exhibit any weakness 5/5 proximal and distal. No leg lag. DTRs are 1+, toes are downgoing. Cerebellar is normal. Sensory is normal. Gait is withheld. He is ambulating to the bathroom. LABORATORY DATA: B12 is high at 72. LDL 126, triglycerides 168, cholesterol 187, HDL 27.2, TSH 2.450. GFR 78. CBC normal, sed rate 6, urine 250, glucose is 100 protein, coag panel is unremarkable. Carotid ultrasound did not yield any stenosis. His echo shows an EF of 45 to 50% with a grade 1 diastolic dysfunction, mild valvular regurg but he did have a PFO. IMPRESSION TIA-like symptoms in a 55 year-old man with hypertension, diabetes, hyperlipidemia, now with PFO on echo. RECOMMENDATIONS: Recommend starting him currently on aspirin. He is agreeable to the MRI/MRA. I will order that with some Ativan prior to him going into the machine. I would recommend a cardiology evaluation to discuss the PFO, should we keep him on aspirin or anticoagulate him, given his symptoms. Continue statin. If stable and cleared by cardiology, can be discharged after imaging. MD ESHA Phillips/SHYANN /9:30 AM /9:41 AM
[2016-11-23] MEDS ORDERED: LORazepam 2 MG/ML VIAL IV PUSH ONE (11:00)
[2016-11-23] MEDS: SODIUM CHLOR 0.9% 1000 ML INJ 1,000 ML IV SCH (11:03)
--- NOTE | 2016-11-23 11:43 | RADRPT ---
EXAM DATE/TIME: 11/23/2016 11:25 [facility] COMPARISON: US CAROTID ARTERIES, November 22, 2016, 11:46. CT BRAIN W/O CONTRAST, November 21, 2016, 19:03. M RI BRAIN W/O CONTRAST, November 23, 2016, 11:25. INDICATIONS : Slurred speech. MEDICAL HISTORY : Hypertension. Diabetes mellitus type 2. SURGICAL HISTORY : Total knee replacement, left. Total knee replacement, right. ENCOUNTER: Initial ACUITY: 1 day PAIN SCORE: 0/10 LOCATION: cranial Please note a normal MRA of the brain does not entirely exclude the possibility of a small aneurysm, nor the possibility of distal intracranial vessel disease. TECHNIQUE: 3D time of flight MRA was performed. Source images, multiplanar STS MIP, and 3D volume MIP reconstru ctions were reviewed. FINDINGS: There is excellent visualization of the major intracranial arteries out to the second-order branch ve ssels. There is no evidence for aneurysm, and no evidence for vascular malformation. There is focal moderate stenosis D. right middle cerebral artery bifurcation on axial source image 52. There is also moderate focal stenosis of the right middle cerebral artery M1 division on axial source images 55 pr oximally over a 3.3 mm segment. CONCLUSION: 1. Right MCA stenoses are noted as above. Bk Gallagher MD on November 23, 2016 at 11:37 Board Certified Radiologist. This report was verified electronically.
--- NOTE | 2016-11-23 11:46 | RADRPT ---
EXAM DATE/TIME: 11/23/2016 11:25 [facility] COMPARISON: MRA BRAIN W/O CONTRAST, November 23, 2016, 11:25. US CAROTID ARTERIES, November 22, 2016, 11:46. CT BRAIN W/O CONTRAST, November 21, 2016, 19:03. INDICATIONS : Slurred speech. MEDICAL HISTORY : Hypertension. Diabetes mellitus type 2. SURGICAL HISTORY : Total knee replacement, left. Total knee replacement, right. ENCOUNTER: Initial ACUITY: 1 day PAIN SCORE: 0/10 LOCATION: cranial TECHNIQUE: Multiplanar, multisequence MRI of the brain was performed without contrast. FINDINGS: Examination demonstrates restricted diffusion in the left basal ganglia and mesial temporal pavan on with mild corresponding increased T2 signal. These are compatible with foci of acute infarction. S ignal intensity of the brain is otherwise unremarkable. No masses are seen. CONCLUSION: Foci of acute infarction as above. Bk Gallagher MD on November 23, 2016 at 11:42 Board Certified Radiologist. This report was verified electronically.
--- NOTE | 2016-11-23 11:46 | HHI.PR ---
Subjective Remarks Patient seen and evaluated today in follow-up for TIA. Echo was abnormal and PFO was noted. Patient may be candidate for anticoagulation. Cardiology consult pending. Care plan discussed with neurology Neurological symptoms are improved and patient speech is back to baseline Objective Vitals Vital Signs Date Time Temp Pulse Resp B/P (MAP) Pulse Ox O2 Delivery O2 Flow Rate FiO2 11/23/16 08:09 95 21 11/23/16 08:00 98.2 65 18 151/89 (109) 96 11/23/16 05:00 97.0 71 18 141/90 (107) 99 11/23/16 01:05 97.6 68 16 144/92 (109) 97 11/22/16 20:30 96 21 11/22/16 20:00 97.7 74 16 154/84 (107) 96 11/22/16 19:56 74 11/22/16 16:00 98.2 68 18 148/91 (110) 94 11/22/16 12:00 97.7 73 18 163/97 (119) 95 I/O 11/22/16 11/22/16 11/22/16 11/23/16 11/23/16 11/23/16 06:59 14:59 22:59 06:59 14:59 22:59 Intake Total 500 ml 0 ml 427 ml 1000 ml Output Total 800 ml 2 ml 600 ml Balance -300 ml -2 ml 427 ml -600 ml 1000 ml Intake Oral 0 ml 425 ml IV Total 500 ml 2 ml 1000 ml Output Urine Total 800 ml 0 ml 600 ml Stool Total 2 ml # Voids 1 1 Result Diagram: 11/21/16 1900 11/21/16 1900 A/P Problem List: (1) Neurological complaint ICD Code: R29.90 - Unspecified symptoms and signs involving the nervous system Plan: Rule out TIA versus stroke in this patient with now a known PFO on echo Follow-up MRI/MRA Discuss with neurology Consult cardiology pending Continue aspirin, statin (2) Hypertension ICD Code: I10 - Essential (primary) hypertension Plan: Resume home medications (3) Hyperlipidemia ICD Code: E78.5 - Hyperlipidemia, unspecified Plan: Continue moderate intensity statin (4) Diabetes ICD Code: E11.9 - Type 2 diabetes mellitus without complications Plan: Accu-Cheks with sliding scale insulin Home insulin has been held due to improving glucose control on monitor diet Continue with sliding scale and follow up hemoglobin A1c Patient education Problem Qualifiers (1) Hypertension: Qualified Codes: I10 - Essential (primary) hypertension (2) Hyperlipidemia: Qualified Codes: E78.5 - Hyperlipidemia, unspecified (3) Diabetes: Qualified Codes: E11.8 - Type 2 diabetes mellitus with unspecified complications; Z79.4 - [facility] (current) use of insulin Aimee Flowers MD Nov 23, 2016 11:46
[2016-11-23 13:01] LABS: HEMOGLOBIN LA1C 2.2 %; HEMOGLOBIN P3 3.9 %
[2016-11-23] MEDS: LOSARTAN 50 MG TAB PO SCH (13:31)
[2016-11-23] MEDS: amLODIPine BESYLATE 5 MG TAB PO SCH (13:31)
[2016-11-23] MEDS: ENOXAPARIN SODIUM 100 MG/ML SYRINGE SQ SCH (17:43)
[2016-11-23] MEDS: ATORVASTATIN 40 MG TAB PO SCH (20:49)
[2016-11-24] VITALS (8 sets, daily range): BP systolic 129–159; BP diastolic 77–92; PULSE 60–85; RESP 16–18; TEMP 97–98.8; O2SAT 95–97
[2016-11-24] MEDS: ENOXAPARIN SODIUM 100 MG/ML SYRINGE SQ SCH (06:49)
[2016-11-24 07:40] LABS: PROTHROMBIN TIME - PATIENT 11.1 SEC (9.8-11.6)
[2016-11-24] MEDS: amLODIPine BESYLATE 5 MG TAB PO SCH (08:43)
[2016-11-24] MEDS: LOSARTAN 50 MG TAB PO SCH (08:43)
[2016-11-24] MEDS: INSULIN ASPART SUPPLEMENTAL SCALE SQ SCH ×4 (08:43→20:59)
[2016-11-24] MEDS: ASPIRIN EC 325 MG TABEC PO SCH (08:43)
[2016-11-24] MEDS: SODIUM CHLORIDE 0.9% FLUSH 5 ML FLUSH IV FLUSH SCH ×2 (08:43→21:00)
--- NOTE | 2016-11-24 09:00 | HHI.FF ---
Face to Face Verification Diagnosis: (1) Cerebrovascular accident (CVA) Home Health Nursing Order: Medical education Signs/symptoms of disease process Nursing assessment with vital signs Instructions: PT/INR management, PT/INR 3 times weekly for 1 week then weekly for 3 weeks then monthly., Please send results and correlate with Dr. Harris I have seen patient Jeremy WilhelmJr on 11/24/16. My clinical findings support the need for the requested home health care services because: Limited ability to care for self I certify that my clinical findings support that this patient is homebound because: Unsafe to leave home unassisted Noe Patrick Nov 24, 2016 09:00
--- NOTE | 2016-11-24 12:03 | MB ---
cc: TISHA JAUREGUI M.D. DATE OF CONSULTATION 11/24/2016 HISTORY OF PRESENT ILLNESS Mr. Wilhelm is a 56-year-old gentleman with no toxic habits, very active, obesity, history of high blood pressure, diabetes mellitus. The gentleman does very physical work. He was at home a couple of days ago, typing something on the keyboard and realized he had left-sided weakness. He was brought to the emergency room. T-PA was not administered. CT scan was negative. 2-D echo showed apparent PFO and I was consulted for further evaluation and management. The chart was reviewed. The patient was evaluated. ALLERGIES None. SOCIAL HISTORY As mentioned before, the gentleman is negative for smoking and drinking. FAMILY HISTORY There is a strong family history of diabetes mellitus. MEDICATIONS AT HOME 1. Cozaar. 2. Amlodipine. 3. Humalog. 4. Levemir. MEDICATIONS DURING HOSPITALIZATION 1. Aspirin was added. 2. Lipitor. 3. Lovenox subcu. 4. Coumadin was initiated. REVIEW OF SYSTEMS Currently he refers no chest pain, no chest discomfort. No shortness of breath. No fever. PHYSICAL EXAMINATION GENERAL: Alert, fully oriented in bed. Today is the patient's birthday. VITAL SIGNS: Blood pressure 144/81, pulse 60, respiratory rate 18. LUNGS: Ventilated. . CARDIOVASCULAR: S1, S2. Regular. No gallop, no murmur, no rub. ABDOMEN: Soft, obese. No mass. UPPER EXTREMITIES: No edema. ELECTROCARDIOGRAM Sinus rhythm. No significant ST and T-wave changes. LABORATORY DATA Hemoglobin 14.5, white blood cell 7.1, potassium 3.8. Creatinine is 1.0. Troponin less than 0.02. Total cholesterol 187, triglycerides 168. HDL is low at 27.2, LDL 126. TSH is 2.45. INR is 1.0. ASSESSMENT AND RECOMMENDATIONS Mr. Wilhelm currently is stable. He is talking and fully oriented, alert. There is no gross motor or sensory deficit. I sense some weakness in the left hand but the gentleman states this is the way he was. The refers some and off dizziness and slurred speech. The gentleman is on Lovenox as well as Coumadin. In this young gentleman the best approach would be a . I am thinking about this, either Lovenox and Coumadin and initiate Eliquis. I need clearance from the neurologist for that. Also, because of the symptoms reported by the and the patient and the possible PFO on echo, he is going to need a ABELARDO. The risks, the nature and the benefit of the procedure are clearly stated to him. The risks include esophageal perforation, aspiration, need for endotracheal intubation and even . He understood and agreed to proceed. I will keep the gentleman n.p.o. after midnight. I will transfer him to [facility] for the ABELARDO in the DOC Unit. Also blood pressure is still high and needs to be controlled, may need to be modified. Tisha Jauregui MD HS/SSB /11:10 AM /11:43 AM
--- NOTE | 2016-11-24 12:12 | HHI.PR ---
Subjective Remarks Patient seen and evaluated today in follow-up for stroke. Patient has PFO and care plan discussed with cardiology who will arrange for ABELARDO [facility] tomorrow. Plan of treatment the patient and spouse. Objective Vitals Vital Signs Date Time Temp Pulse Resp B/P (MAP) Pulse Ox O2 Delivery O2 Flow Rate FiO2 11/24/16 10:31 96 21 11/24/16 08:00 97.1 60 18 144/81 (102) 96 11/24/16 04:00 98.8 65 16 159/89 (112) 95 11/24/16 00:00 98.2 62 18 144/83 (103) 95 11/23/16 20:05 96 21 11/23/16 20:00 99.2 70 16 142/89 (106) 95 11/23/16 20:00 71 11/23/16 16:00 97.9 76 18 164/88 (113) 97 I/O 11/23/16 11/23/16 11/23/16 11/24/16 11/24/16 11/24/16 07:00 15:00 23:00 07:00 15:00 23:00 Intake Total 1725 ml 2 ml Output Total 600 ml Balance -600 ml 1725 ml 2 ml Intake Oral 725 ml IV Total 1000 ml 2 ml Output Urine Total 600 ml # Voids 4 # Bowel Movements 1 Result Diagram: 11/21/16189911/21/161899 Objective Remarks GENERAL: This is a well-nourished, well-developed patient, in no apparent distress. CARDIOVASCULAR: Regular rate and rhythm without murmurs, gallops, or rubs. RESPIRATORY: Clear to auscultation. Breath sounds equal bilaterally. No wheezes , rales, or rhonchi. GASTROINTESTINAL: Abdomen soft, non-tender, nondistended. Normal active bowel sounds MUSCULOSKELETAL: Extremities without clubbing, cyanosis, or edema. NEURO: Alert & Oriented x4 to person, place, time, situation. Moves all ext x4 A/P Problem List: (1) Hypertension ICD Code: I10 - Essential (primary) hypertension Plan: Controlled on home medicines (2) Hyperlipidemia ICD Code: E78.5 - Hyperlipidemia, unspecified Plan: Continue moderate intensity statin (3) Diabetes ICD Code: E11.9 - Type 2 diabetes mellitus without complications Plan: Accu-Cheks with sliding scale insulin Home insulin has been held due to improving glucose control on monitor diet Hemoglobin A1c 7.5 which is improved per the patient Patient education (4) Cerebrovascular accident (CVA) ICD Code: I63.9 - Cerebral infarction, unspecified Plan: Continue risk modification with patient known to have diabetes and hypertension. Patient will need ABELARDO for PFO Eliquis Discharge Planning Transferred to maintain tomorrow for ABELARDO Care plan discussed with cardiology Problem Qualifiers (1) Hypertension: Qualified Codes: I10 - Essential (primary) hypertension (2) Hyperlipidemia: Qualified Codes: E78.5 - Hyperlipidemia, unspecified (3) Diabetes: Qualified Codes: E11.8 - Type 2 diabetes mellitus with unspecified complications; Z79.4 - joint terminal attack controller (current) use of insulin Aimee Flowers MD Nov 24, 2016 12:12
[2016-11-24] MEDS ORDERED: WARFARIN SOD 5 MG TAB PO SCH (16:00)
[2016-11-24] MEDS: ATORVASTATIN 40 MG TAB PO SCH (20:47)
[2016-11-24] MEDS: APIXABAN 5 MG TABLET PO SCH (20:48)
[2016-11-25] VITALS: BP 149/85; PULSE 68; RESP 16; TEMP 96.9; O2SAT 95
[2016-11-25 04:00] VITALS: BP 137/87; PULSE 60; RESP 18; TEMP 96.7; O2SAT 97
[2016-11-25] MEDS: INSULIN ASPART SUPPLEMENTAL SCALE SQ SCH (06:31)
[2016-11-25 07:58] VITALS: BP 139/85; PULSE 63; RESP 16; TEMP 97.3; O2SAT 94
[2016-11-25 08:00] VITALS: PULSE 54
[2016-11-25] MEDS: ASPIRIN EC 325 MG TABEC PO SCH (08:10)
[2016-11-25] MEDS: LOSARTAN 50 MG TAB PO SCH (08:10)
[2016-11-25] MEDS: SODIUM CHLORIDE 0.9% FLUSH 5 ML FLUSH IV FLUSH SCH (08:13)
[2016-11-25] MEDS: APIXABAN 5 MG TABLET PO SCH (08:55)
[2016-11-25] MEDS ORDERED: PROPOFOL 200 MG/20 ML AMP IV ONE (10:11)
--- NOTE | 2016-11-25 10:53 | HHI.PR ---
Subjective Remarks Patient seen in follow-up for CVA. Transportation available for transport to the main hospital for ABELARDO. No events overnight. Objective Vitals Vital Signs Date Time Temp Pulse Resp B/P (MAP) Pulse Ox O2 Delivery O2 Flow Rate FiO2 11/25/16 08:00 54 11/25/16 07:58 97.3 63 16 139/85 (103) 94 11/25/16 04:00 96.7 60 18 137/87 (104) 97 11/25/16 00:00 96.9 68 16 149/85 (106) 95 11/24/16 21:23 95 21 11/24/16 20:00 76 11/24/16 20:00 98.1 81 18 129/77 (94) 96 11/24/16 16:00 97.8 81 18 148/91 (110) 97 11/24/16 12:00 97.0 80 18 148/92 (110) 96 I/O 11/24/16 11/24/16 11/24/16 11/25/16 11/25/16 11/25/16 07:00 15:00 23:00 07:00 15:00 23:00 Intake Total 480 ml 480 ml Balance 480 ml 480 ml Intake Oral 480 ml 480 ml # Voids 3 3 # Bowel Movements 1 1 Result Diagram: 11/21/16189911/21/161899 Objective Remarks GENERAL: This is a well-nourished, well-developed patient, in no apparent distress. CARDIOVASCULAR: Regular rate and rhythm without murmurs, gallops, or rubs. RESPIRATORY: Clear to auscultation. Breath sounds equal bilaterally. No wheezes , rales, or rhonchi. GASTROINTESTINAL: Abdomen soft, non-tender, nondistended. Normal active bowel sounds MUSCULOSKELETAL: Extremities without clubbing, cyanosis, or edema. NEURO: Alert & Oriented x4 to person, place, time, situation. Moves all ext x4 A/P Problem List: (1) Hypertension ICD Code: I10 - Essential (primary) hypertension Plan: Controlled on home medicines (2) Hyperlipidemia ICD Code: E78.5 - Hyperlipidemia, unspecified Plan: Continue moderate intensity statin (3) Diabetes ICD Code: E11.9 - Type 2 diabetes mellitus without complications (4) Cerebrovascular accident (CVA) ICD Code: I63.9 - Cerebral infarction, unspecified Plan: Continue risk modification with patient known to have diabetes and hypertension. 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
[2016-11-25] MEDS ORDERED: SODIUM CHLORID 0.9% 500 ML IV PRN (11:45)
[2016-11-25] MEDS ORDERED: METOPROLOL TARTRATE 25 MG TAB PO PRN (11:45)
[2016-11-25] MEDS ORDERED: CHLORHEXIDINE GLUCONATE 2 % 1 PACK (2 CLOTHS) TOPICAL PRN (11:45)
[2016-11-25] MEDS ORDERED: POVIDONE IODINE 5% (ANTISEPSIS KIT) 4 APPLICATIONS EACH NARE PRN (11:45)
[2016-11-25] MEDS ORDERED: LACTATED RINGER'S 1000 ML IV PRN (11:45)
[2016-11-25] MEDS ORDERED: INSULIN HUMAN REGULAR 1,000 UNITS/10 ML VIAL SQ PRN (11:45)
--- NOTE | 2016-11-25 13:29 | HHI.PR ---
Subjective Remarks Feeling ok Objective Vital Signs Date Time Temp Pulse Resp B/P (MAP) Pulse Ox O2 Delivery O2 Flow Rate FiO2 11/25/16 08:00 54 11/25/16 07:58 97.3 63 16 139/85 (103) 94 11/25/16 04:00 96.7 60 18 137/87 (104) 97 11/25/16 00:00 96.9 68 16 149/85 (106) 95 11/24/16 21:23 95 21 11/24/16 20:00 76 11/24/16 20:00 98.1 81 18 129/77 (94) 96 11/24/16 16:00 97.8 81 18 148/91 (110) 97 I/O 11/24/16 11/24/16 11/24/16 11/25/16 11/25/16 11/25/16 07:00 15:00 23:00 07:00 15:00 23:00 Intake Total 480 ml 480 ml Balance 480 ml 480 ml Intake Oral 480 ml 480 ml # Voids 3 3 # Bowel Movements 1 1 Result Diagram: 11/21/16 19011/21/161899 Imaging Alert, fully oriented Lungs: ventilated Heart: S1, S2 regular, no gallop Abdomen: soft, no mass Ext: no edema Last Impressions Head Magnetic Resonance Angiography 11/23/16 0000 Signed Impressions: Service Date/Time: Wednesday, November 23, 2016 11:25 - CONCLUSION: 1. Right MCA stenoses are noted as above. Bk Gallagher MD Brain MRI 11/23/16 0000 Signed Impressions: Service Date/Time: Wednesday, November 23, 2016 11:25 - CONCLUSION: Foci of acute infarction as above. Bk Gallagher MD Carotid Artery Ultrasound 11/22/16 0000 Signed Impressions: Service Date/Time: Tuesday, November 22, 2016 11:46 - CONCLUSION: Negative examination for a hemodynamically significant carotid stenosis. Troy Zavaleta MD Head CT 11/21/161844 Signed Impressions: Service Date/Time: Monday, November 21, 2016 19:03 - CONCLUSION: No acute disease. Ramy Correia MD Chest X-Ray 11/21/161844 Signed Impressions: Service Date/Time: Monday, November 21, 2016 19:24 - CONCLUSION: Borderline cardiomegaly. Ramy Correia MD Current Medications Medications (Trade) Dose Ordered Sig/Stephanie Route Start Time Stop Time Status Last Admin (NS Flush) 2 ml BID IV FLUSH 11/22/16 21:00 11/25/16 08:13 (NS Flush) 2 ml UNSCH PRN IV FLUSH 11/21/16 21:15 (Vasotec Inj) 1.25 mg Q4H PRN IV 11/21/16 21:15 (NovoLOG SUPPLEMENTAL SCALE) 1 ACHS SQ 11/22/16 07:00 11/24/16 20:59 (D50w (Vial) Inj) 50 ml UNSCH PRN IV PUSH 11/21/16 21:15 (Glucagon Inj) 1 mg UNSCH PRN OTHER 11/21/16 21:15 (Zofran Inj) 4 mg Q6HR PRN IV PUSH 11/22/16 09:00 (Ecotrin Ec) 325 mg DAILY PO 11/22/16 12:00 11/25/16 08:10 (Lipitor) 40 mg HS PO 11/23/16 21:00 11/24/16 20:47 (Cozaar) 50 mg DAILY PO 11/23/16 12:00 11/25/16 08:10 (Norvasc) 10 mg DAILY PO 11/25/16 09:00 11/25/16 08:11 (Eliquis) 5 mg BID PO 11/24/16 21:00 11/25/16 08:55 Lactated Ringer's 1,000 ml @ 30 mls/hr Q24H PRN IV 11/25/16 11:45 11/28/16 11:44 Sodium Chloride 500 ml @ 30 mls/hr [id number] PRN IV 11/25/16 11:45 11/28/16 11:44 (Lopressor) 25 mg DIGITAL MEDIA BUYER PRN PO 11/25/16 11:45 11/28/16 11:44 (Betadine 5% Antisepsis Kit) 1 applic DIGITAL MEDIA BU[employer]ER PRN EACH NARE 11/25/16 11:45 11/28/16 11:44 (Chlorhexidine 2% Cloth) 3 pack DIGITAL MEDIA BUYER PRN TOPICAL 11/25/16 11:45 11/28/16 11:44 (NovoLIN R INJ) See Protocol Table ... DIGITAL MEDIA BUYER PRN SQ 11/25/16 11:45 11/28/16 11:44 Assessment and Plan Problem List: (1) Hypertension ICD Codes: I10 - Essential (primary) hypertension Plan: SBP 139 (2) Cerebrovascular accident (CVA) ICD Codes: I63.9 - Cerebral infarction, unspecified Plan: No new episode reported ABELARDO shows no PFO can be DH when ok with the managing team will be followed on a PRN basis Problem Qualifiers (1) Hypertension: Qualified Codes: I10 - Essential (primary) hypertension Megan Lane MD Nov 25, 2016 13:29
[2016-11-25] MEDS ORDERED: ASPI325T33 PO (13:57)
[2016-11-25] MEDS ORDERED: ATOR40TA16 PO (13:57)
--- NOTE | 2016-11-25 14:01 | HHI.DCPOC ---
Discharge Care Plan Diagnosis: (1) Cerebrovascular accident (CVA) Goals to Promote Your Health * To prevent worsening of your condition and complications * To maintain your health at the optimal level Directions to Meet Your Goals Take your medications as prescribed Follow your dietary instruction Follow activity as directed Keep your appointments as scheduled Take your immunizations and boosters as scheduled If your symptoms worsen call your PCP, if no PCP go to Urgent Care Center or Emergency Room Smoking is Dangerous to Your Health. Avoid second hand smoke Call the 24-hour hour crisis hotline for domestic abuse at Aimee Flowers MD Nov 25, 2016 14:01
--- NOTE | 2016-11-25 14:16 | HHI.DS ---
cc: Isauro Harris MD Discharge Summary Admission Date Nov 21, 2016 at 21:03 Discharge Date: Nov 25, 2016 Admitting Diagnosis CVA (1) Hypertension ICD Code: I10 - Essential (primary) hypertension (2) Hyperlipidemia ICD Code: E78.5 - Hyperlipidemia, unspecified (3) Diabetes ICD Code: E11.9 - Type 2 diabetes mellitus without complications (4) Cerebrovascular accident (CVA) ICD Code: I63.9 - Cerebral infarction, unspecified Procedures ABELARDO: no pfo Brief History - From Admission Written by Noe Patrick, acting as scribe for Dr. Flowers on 11/22/16 at 09: 18. 55 year-old male with known history of hypertension, hyperlipidemia, diabetes who presented to hospital because of neurologic complaints to include slurred speech, disequilibrium, change in handwriting, and difficulty using a computer keyboard. Patient states that he is in normal state of health yesterday when he got up he went to work and approximate 8:30/9 AM yesterday morning and his boss noticed that he was having slow and slurred speech. The patient also indicates that he was losing his balance whenever he was going from a sitting to standing position. When he is using the computer he noticed that he was misspelling words and when he was writing it was worse than usual. Because of those reasons he came to emergency department for evaluation. Patient presented to the hospital at 1757. Patient was out of window for TPA administration. Patient was given aspirin emergency department has CT scan done which was unremarkable for any acute abnormality. It was then recommended that the patient be admitted for CVA workup. Patient denies any visual disturbances, weakness unilaterally or bilaterally, paresthesia. CBC/BMP: 11/21/16 1900 11/21/16 1900 Significant Findings Laboratory Tests Test 11/24/16 07:08 Imaging Last Impressions Head Magnetic Resonance Angiography 11/23/16 0000 Signed Impressions: Service Date/Time: Wednesday, November 23, 2016 11:25 - CONCLUSION: 1. Right MCA stenoses are noted as above. Bk Gallagher MD Brain MRI 11/23/16 0000 Signed Impressions: Service Date/Time: Wednesday, November 23, 2016 11:25 - CONCLUSION: Foci of acute infarction as above. Bk Gallagher MD Carotid Artery Ultrasound 11/22/16 0000 Signed Impressions: Service Date/Time: Tuesday, November 22, 2016 11:46 - CONCLUSION: Negative examination for a hemodynamically significant carotid stenosis. Troy Zavaleta MD Head CT 11/21/161844 Signed Impressions: Service Date/Time: Monday, November 21, 2016 19:03 - CONCLUSION: No acute disease. Ramy Correia MD Chest X-Ray 11/21/161844 Signed Impressions: Service Date/Time: Monday, November 21, 2016 19:24 - CONCLUSION: Borderline cardiomegaly. Ramy Correia MD PE at Discharge GENERAL: This is a well-nourished, well-developed patient, in no apparent distress. CARDIOVASCULAR: Regular rate and rhythm without murmurs, gallops, or rubs. RESPIRATORY: Clear to auscultation. Breath sounds equal bilaterally. No wheezes , rales, or rhonchi. GASTROINTESTINAL: Abdomen soft, non-tender, nondistended. Normal active bowel sounds MUSCULOSKELETAL: Extremities without clubbing, cyanosis, or edema. NEURO: Alert & Oriented x4 to person, place, time, situation. Moves all ext x4 Transfer Summary Went to main for ABELARDO Pt update on day of discharge See daily progress note Hospital Course Patient seen and treated for acute neuro changes which are now known to be due to a CVA. HE was thoght to have a PFO on TTE, but ABELARDO was negative for PFO. HE was managed for acute cva with the addition of Aspirin and a statin. Pt Condition on Discharge: Good Discharge Disposition: Discharge Home Discharge Time: > 30 minutes Discharge Instructions DIET: Follow Instructions for: Heart Healthy Diet, Diabetic Diet Activities you can perform: Regular-No Restrictions Follow up Referrals: PCP Follow-up - 1 Week New Medications: Aspirin DR (Aspirin EC) 325 Mg Tabdr 325 MG PO DAILY for Stroke Prevention for 30 Days, #30 TAB Atorvastatin (Atorvastatin) 40 Mg Tab 40 MG PO HS for Cholesterol Management, #31 TAB Continued Medications: Amlodipine (Amlodipine) 5 Mg Tab 5 MG PO DAILY for Blood Pressure Management, #30 TAB 0 Refills Cyanocobalamin (Vitamin B-12) 250 Mcg Tab 250 MCG PO DAILY for Nutritional Supplement, #1 BOTTLE 0 Refills Insulin Detemir Inj (Levemir Inj) 1,000 unit/ 10 ML Vial 65 UNITS SQ HS for Blood Sugar Management, VIAL 0 Refills Do not mix with any other Insulin. Insulin Lispro (Human) Inj (Humalog Inj) 1,000 Unit/10 Ml Vial 24 UNITS SQ ACHS for Blood Sugar Management, #1 VIAL 0 Refills Max dose at bedtime:( )units; sugars < 70,(0)units; sugars 150-199,(5)units; sugars 200-249,(10)units; sugars 250-299,(15)units; sugars 300-349,(20)units; sugars more than 349,(25)units. Losartan (Cozaar) 50 Mg Tab 50 MG PO DAILY for Blood Pressure Management, #30 TAB 0 Refills Aimee Flowers MD Nov 25, 2016 14:16
[2016-11-25] MEDS ORDERED: APIX5TAB PO (16:00)
--- NOTE | 2016-11-30 22:45 | ECHRPT ---
Indication: CVA/TIA CONCLUSIONS No right to left shunt No clot seen at left atrium nor left atrial appendage No chamber enlargement Adequate left ventricular systolic function. Ejection fraction 60-65%. BP: / HR: Rhythm: Sinus Technical Quality:Excellent Medications Administered by anesthesiology Complications Proc. Components FINDINGS LEFT VENTRICLE Normal left ventricular size and wall thickness. The left ventricular systolic function is normal wi th an estimated ejection fraction in the range of 60-65%. Left ventricular diastolic function parameters a re normal. RIGHT VENTRICLE Normal right ventricular size and systolic function. LEFT ATRIUM The left atrial size is normal. RIGHT ATRIUM The right atrial size is normal. ATRIAL APPENDAGES No clot seen ATRIAL SEPTUM Normal atrial septal thickness without atrial level shunting by limited color doppler interrogation. AORTA The aortic root and proximal ascending aorta are normal in size on limited imaging. MITRAL VALVE Structurally normal mitral valve. No mitral valve stenosis or regurgitation. AORTIC VALVE Trileaflet aortic valve. No aortic valve stenosis or regurgitation. TRICUSPID VALVE Structurally normal tricuspid valve. No tricuspid valve stenosis or regurgitation. VESSELS The inferior vena cava is normal in size. PULMONARY VALVE The pulmonary valve is not well visualized. PERICADIUM No pericardial effusion. Megan Lane MD (Electronically Signed) Final Date:30 November 2016 22:44
== END 2016-11-25 16:08 | disposition home or self-care (01) | DRG 66 ==
LOC: PHED 17:57 → PHEDA 21:03 → PH5A 22:32 → PH3A 11-22 12:23 → HCIS 11-25 10:49
PROVIDERS: ADMIT Hospitalist; ATTEND Hospitalist
PROC: B246ZZ4 Ultrasonography of Right and Left Heart, Transesophageal (ICD-10-PCS; principal; 2016-11-25)
DX: I63.9 Cerebral infarction, unspecified (principal); I10 Essential (primary) hypertension; E11.9 Type 2 diabetes mellitus without complications; E78.5 Hyperlipidemia, unspecified; R47.81 Slurred speech; M19.90 Unspecified osteoarthritis, unspecified site; F40.240 Claustrophobia; Z79.4 Long term (current) use of insulin
CPT/HCPCS: 70450; 70544; 70551; 71010; 80053; 80061; 81001; 82550; 82607; 82746; 82948; 83036; 84443; 84484; 85025; 85610; 85652; 85730; 93005; 93306; 93312; 93320; 93325; 93880; 96360; J1650; J1815; J2060; J7030